=== PATIENT | female | born 1980 | race Caucasian/White ===

== ENCOUNTER 2020-01-28 13:22 | Outpatient (CLI) | payer OTHER, SELFPAY ==
--- NOTE | ~2020-01-28 | MMUS_ITS ---
EXAMINATION: MM diagnostic rony RT w yamileth, US breast RT limited HISTORY: Follow-up right breast calcifications TECHNIQUE: Additional 3-D tomosynthesis images of the right breast were performed and synthetic 2-D i mages were generated. CAD analysis was submitted and interpreted. High-resolution ultrasound of the r ight breast. COMPARISON: Comparison to multiple prior studies sequentially, with oldest reviewed study dated 12/2018. FINDINGS: Breast composed of scattered areas of fibroglandular density. Clustered calcifications uppe r inner quadrant of the right breast are stable, likely benign. Stable focal asymmetry lower inner qu adrant of the right breast. No new masses, calcifications or architectural distortion. Limited right breast ultrasound: At 2:00, 2 cm from the nipple, there is a hypoechoic mass with circumscribed margins, parallel orient ation and no internal vascularity or posterior features. This mass measures 1.5 x 1.5 x 0.8 cm compar ed with 1.9 x 1.0 x 0.5 cm on prior examination. IMPRESSION: 1. Focal right breast mass at 2:00, 2 cm from the nipple is not significantly changed allowing for di fferences of technique, likely benign. Benign-appearing right breast calcifications are unchanged. 2. Recommend 6 month follow-up diagnostic right mammogram and ultrasound recommended BI-RADS category 3, probably benign findings. Reviewed, dictated and finalized at location A. IMPRESSION: 1. Focal right breast mass at 2:00, 2 cm from the nipple is not significantly c hanged allowing for differences of technique, likely benign. Benign-appearing r ight breast calcifications are unchanged. 2. Recommend 6 month follow-up diagnostic right mammogram and ultrasound recomm ended BI-RADS category 3, probably benign findings.
== END 2020-01-28 13:23 | disposition home or self-care (01) ==
PROVIDERS: PCP Family Medicine; Visit Provider Physician Assistant Medical
DX: R92.8 Other abnormal and inconclusive findings on diagnostic imaging of breast (principal)
CPT/HCPCS: 76642; 77061; 77065; G0279

== ENCOUNTER 2020-03-12 15:42 | Emergency (ER) | payer OTHER, SELFPAY ==
--- NOTE | ~2020-03-12 | XR_ITS ---
EXAMINATION: XR finger 3rd LT min 2V DATE: 03/12/2020 17:24 INDICATION: Left hand third digit foreign body. TECHNIQUE: 3 views of left hand third digit were obtained. COMPARISON: Left hand third digit radiographs at 4:07 PM FINDINGS: Bone alignment is normal. No fracture. Joint spaces are normal. There is an 8 x 1 mm radiop aque foreign body in the soft tissues radial to third distal phalanx. IMPRESSION: 1. Persistent radiopaque foreign body in distal third digit. Reviewed, dictated and finalized at location A.
--- NOTE | ~2020-03-12 | XR_ITS ---
EXAMINATION: XR finger 3rd LT min 2V DATE: 03/12/2020 16:13 INDICATION: Left hand third digit foreign body. TECHNIQUE: 3 views of left hand third digit were obtained. COMPARISON: None. FINDINGS: Bone alignment is normal. No fracture. Joint spaces are normal. There is an 8 x 1 mm radiop aque foreign body in the soft tissues radial to third distal phalanx. IMPRESSION: 1. Radiopaque foreign body in distal third digit. Reviewed, dictated and finalized at location A.
[2020-03-12 16:04] VITALS: BP 131/92; PULSE 95; RESP 18; TEMP 37.1; O2SAT 98
--- NOTE | 2020-03-12 16:55 | ED.WOUNDLAC ---
HPI - Wound/Laceration General Chief Complaint: Wound/Laceration Stated Complaint: laceration Time Seen by Provider: 03/12/20 16:30 Source: patient Mode of arrival: ambulatory Limitations: no limitations History of Present Illness HPI narrative: Vane William is a 39 yo female with a PMH of,hypo thyroid and depression, who comes to express care with possible needle stuck in finger from sewing machine that happened POA Related Data Home Medications Medication Instructions Recorded Confirmed Otc Vitamins 03/12/20 Allergies Allergy/AdvReac Type Severity Reaction Status Date / Time No Known Allergies Allergy Unknown Unverified 07/28/17 13:44 Review of Systems Review of Systems: Narrative: CONSTITUTIONAL: Denies fever, chills, sweats. EYES: Denies visual changes, redness, discharge. ENT: Denies rhinorrhea, congestion, sore throat, otalgia. CARDIOVASCULAR: Denies chest pain, palpitations, edema. RESPIRATORY: Denies dyspnea, wheezing, cough GASTROINTESTINAL: Denies abdominal pain, nausea, vomiting, diarrhea. GENITOURINARY: Denies dysuria, hematuria, abnormal discharge SKIN: Denies rash or itching. Possible sewing needle in finger NEUROLOGIC: Denies numbness, or focal weakness. PSYCHIATRIC: Denies anxiety or depression. [facility] Family History Family History Father Hypertension Family history of diabetes mellitus in first degree relative Other Malignant neoplasm of prostate Social History Social History Smoking status: Current every day smoker Alcohol intake: current Comments At time of signature, I agree with nursing past medical, surgical, social and family history. There is no relevant family history pertinent to the presenting complaint. Blood pressure is elevated due to pain and visit in express care, recommend follow-up with PCP Exam Narrative: Exam Narrative: GENERAL: This is a well-nourished, well-developed patient, in mild distress. HEAD: normocephalic, atraumatic. EYES: PERRL. Sclera clear/white. Vision is grossly intact. EARS: External ears normal, auditory canals clear and without drainage, TMs normal without perforation. Hearing grossly intact. NOSE: External nose normal without nasal discharge, nares without redness, no rhinorrhea. THROAT: Mucous membranes moist, posterior pharynx NECK: Neck supple, non-tender CARDIOVASCULAR: Regular rate and rhythm without murmurs, gallops, or rubs. RESPIRATORY: Clear to auscultation. Breath sounds equal bilaterally. No wheezes, rales, or rhonchi. GASTROINTESTINAL: Abdomen soft, non-tender, SKIN: warm, intact with no suspicious lesions or rash, good texture and turgor. Radiopaque foreign object in third left finger and soft tissue along distal digit NEURO: awake, alert, and oriented to person, place and time. There were no obvious focal neurologic abnormalities. Steady gait EXTREMITIES: Normal range of motion. BACK: Nontender without deformity Course Vital Signs Vital signs: Vital Signs Temperature 98.7 F 03/12/20 16:04 Pulse Rate 95 03/12/20 16:04 Respiratory Rate 18 03/12/20 16:04 Blood Pressure 131/92 H 03/12/20 16:04 Pulse Oximetry 98 03/12/20 16:04 Temperature 98.7 F 03/12/20 16:04 Pulse Rate 95 03/12/20 16:04 Respiratory Rate 18 03/12/20 16:04 Blood Pressure 131/92 H 03/12/20 16:04 Pulse Oximetry 98 03/12/20 16:04 Procedures Foreign Body Removal Foreign Body #1: Foreign Body Removal Date: 03/12/20 Foreign Body Removal Time: 17:00 Site: left Description of foreign body: needle Technique: removal with forceps Confirmed by:: radiograph Complications: bleeding Foreign Body Removal Narrative: failed to retrieve needle from distal digit MDM - Wound/Laceration Differential Diagnosis Differential diagnosis: Likely laceration, abrasion and other
--- NOTE | 2020-03-12 18:02 | PC.NURSE ---
awaiting call back from dr. lew
--- NOTE | 2020-03-12 18:39 | PC.NURSE ---
at [id number] office called back and to f/u in morning.
== END 2020-03-12 18:36 | disposition home or self-care (01) ==
PROVIDERS: Emergency Provider Nurse Practitioner; PCP Family Medicine
DX: S61.243A Puncture wound with foreign body of left middle finger without damage to nail, initial encounter (principal); W27.3XXA Contact with needle (sewing), initial encounter; F17.200 Nicotine dependence, unspecified, uncomplicated; E03.9 Hypothyroidism, unspecified; F41.9 Anxiety disorder, unspecified; F32.9 Major depressive disorder, single episode, unspecified
CPT/HCPCS: 73140; 99213; G0463

== ENCOUNTER → 2020-04-25 10:48 | Outpatient (CLI) | payer OTHER, SELFPAY ==
--- NOTE | ~2020-04-25 | US_ITS ---
US thyroid INDICATION: Nontoxic goiter. TECHNIQUE: Real-time sonographic images of the thyroid gland were obtained. COMPARISON: No prior studies for comparison. FINDINGS: The right thyroid lobe measures 3.7 x 2.1 x 1.7 cm. The left thyroid lobe measures 3 x 1.2 x 1.2 cm. In the posterior mid aspect of the right thyroid lobe there is a solid-appearing hypoechoi c mass that is taller than wide, irregular margins and no definite internal calcifications measuring 1.6 x 1.5 x 1.3 cm, TR 5. IMPRESSION: 1. Suspicious right thyroid mass, TR5. Ultrasound-guided biopsy recommended. Reviewed, dictated and finalized at location A.
== END ==
PROVIDERS: PCP Family Medicine; Visit Provider Internal Medicine Endocrinology, Diabetes & Metabolism
DX: E04.9 Nontoxic goiter, unspecified (principal)
CPT/HCPCS: 76536

== ENCOUNTER 2020-05-19 13:20 | Outpatient (CLI) | payer OTHER, SELFPAY ==
--- NOTE | ~2020-05-19 | US_ITS ---
EXAMINATION: US FNA w image guidance DATE: 05/19/2020 14:09 INDICATION: Right thyroid nodule. TECHNIQUE: The procedure and its benefits, risks, and benefits were discussed with the patient. Risks specifical ly discussed included bleeding. The patient verbalized understanding of the risks and agreed to proce ed. The neck was prepped and draped in the usual sterile manner. 1% lidocaine was used for local ane sthesia. 5 passes were made with a 25G needle into the lesion. Appropriate needle location was docu mented with continuous sonographic guidance. There were no immediate complications. The patient unde rstood to call the ordering physician for results after a week and a half and verbalized that underst anding. FINDINGS: Grayscale ultrasound images demonstrate needles advanced into a 1.6 cm inferior right thyroid nodule for biopsy. IMPRESSION: 1. Ultrasound-guided fine needle aspiration of a right thyroid nodule. Reviewed, dictated and finalized at location A.
== END 2020-05-19 13:21 | disposition home or self-care (01) ==
PROVIDERS: PCP Family Medicine; Visit Provider Internal Medicine Endocrinology, Diabetes & Metabolism
DX: E04.1 Nontoxic single thyroid nodule (principal)
CPT/HCPCS: 10005; 88173; 88305

== ENCOUNTER 2020-06-02 08:37 | Outpatient (CLI) | payer OTHER, SELFPAY ==
--- NOTE | 2020-06-16 14:30 | SLEEP_ITS ---
HOME SLEEP TEST DATE OF STUDY: 06/02/2020 ORDERING PHYSICIAN: Giana Mueller MD. REASON FOR THIS STUDY: Hypersomnolence. HISTORY: The patient is a 39-year-old female, 5 feet 5 inches tall, weighing 240 pounds with a body mass index of 39.9. She has complaints of difficulty sleeping for years. She has had bouts of insomnia, where she is awake for hours in the middle of the night. She wakes up feeling tired and exhausted. Her notes that she snores. She does use Benadryl or Tylenol before sleep to help initiate sleep. She does not awaken from sleep feeling short of breath. She occasionally awakens at night with heartburn, belching, coughing, she snores and occasionally it is loud enough that others complain about it. She occasionally has trouble sleeping with a cold. She does not wake up gasping for breath at night. She occasionally has breathing problems at night observed by others. She frequently sweats excessively night. She occasionally notices her heart pounding or beating irregularly at night. She frequently falls asleep in the day, rarely involuntarily, never while driving. She does not have loss of muscle tone with strong emotion. She rarely has daytime difficulties due to excessive sleepiness. She works as an administrative services specialist. She does not feel paralyzed on waking or falling asleep. She never has vivid dreamlike scenes upon awakening or falling asleep. She is never afraid to go to sleep and does not have nightmares. She rarely remembers her dreams. She occasionally has racing thoughts, feelings of sadness, depression, anxiety, occasional muscular tension and occasionally notices parts of her body jerking. She does not kick at night or have crawly achy feelings in her legs. She does not have leg pain at night. She frequently has morning jaw pain. She rarely grinds her teeth during sleep, rarely is bothered by pain during the day, and rarely is awakened by pain at night. She frequently wakes up feeling stiff in the morning with sore achy muscles. She occasionally wakes up with pain in the neck and spine. She has headaches and fatigue. Normal bedtime is 10:30 to 11:00 p.m., falling asleep within 15 minutes, waking 3-5 times at night for a few minutes, will adjust position and try to go back to sleep. She wakes in the morning at 6:00-6:30 a.m. She estimates 7-8 hours of sleep per night. Weekend schedule is very similar. She does take naps in the afternoon or evening. A short nap is not refreshing. She is usually drowsy in the morning for 2 hours or longer. MEDICAL COMORBIDITIES: 1. Depression. 2. Hypothyroidism. 3. Blood pressure was elevated in the office, but there is no listed diagnosis of hypertension. 4. Fatigue. 5. Hirsutism. MEDICATIONS: 1. Synthroid 150 mcg daily. 2. Spironolactone 50 mcg twice a day. 3. Metformin 500 mg b.i.d. 4. Multivitamin 1 daily. HABITS: Never smoked tobacco. Caffeine, 1 per day. Alcohol less than 1 per day, average 2 per week. No recreational drugs. DESCRIPTION OF THE STUDY: On the [place] Sleepiness Scale, her score is elevated at 16. This was conducted an unattended type 3 portable home sleep test using 4-channel monitoring with respiratory effort channel, snoring channel, oxygen saturation channel, and heart rate channel. This study was scored using CMS guidelines. Duration was 8 hours 0 minutes. The apnea-hypopnea index is 14.1. This is above normal. Oxygen desaturation index is 13.4. There were 6 apneas. They were all obstructive. She had 107 hypopneas and 1560 snoring events. She desaturated 108 times and spent 28 minutes, 6% of the study below 88% saturation. Heart rate ranged from 58 to 103. IMPRESSION: 1. This home sleep test ApneaLink shows at least
== END 2020-06-02 08:38 | disposition home or self-care (01) ==
LOC: ANHCSM 08:41
PROVIDERS: PCP Family Medicine; Visit Provider Internal Medicine Endocrinology, Diabetes & Metabolism
DX: G47.33 Obstructive sleep apnea (adult) (pediatric) (principal)
CPT/HCPCS: 95806

== ENCOUNTER 2020-09-04 02:11 | Outpatient (CLI) | payer OTHER, SELFPAY ==
[2020-09-04 17:23] LABS: SARS-CoV-2 RNA PCR Negative
== END 2020-09-04 02:12 | disposition home or self-care (01) ==
LOC: ANHCOVIDDT 02:11
PROVIDERS: PCP Family Medicine; Visit Provider Internal Medicine Critical Care Medicine
DX: Z01.812 Encounter for preprocedural laboratory examination (principal); Z20.822 Contact with and (suspected) exposure to COVID-19
CPT/HCPCS: C9803; U0003

== ENCOUNTER 2020-09-07 08:21 | Outpatient (CLI) | payer OTHER, SELFPAY ==
--- NOTE | 2020-10-15 11:29 | WPDSLEEPSTUD ---
Sleep Study Date of Study: 09/07/20 Ordering Provider: Tito Dutta MD Interpreting Physician: Mariaelena Astorga MD Sleep Study Type: CPAP Titration Height: 1.65 m Weight: 108.862 kg Body Mass Index: 39.9 Neck Circumference: 43.18 cm Corea: 16 Reason for Sleep Study Home Sleep Test 06/02/2020 with ApneaLink device showing an AHI of 14.1, desaturation to 76% with frequent snoring. Presents for a CPAP titraiton. Sleep History Vane William is a 40 year old female with a history of hypersomnolence, difficulty sleeping for years with episodes of insomnia, often waking for hours during the middle of the night. She has non refreshing sleep. She has been told she snores loudly. She has used Benadryl and Tylenol to help initiate sleep. She does not wake up at night feeling short of breath. She occasionally wakes up with heartburn belching or coughing. She does not wake up gasping for breath at night. She is frequently sweats excessively at night. She occasionally notices her heart pounding or beating irregularly at night. She frequently falls asleep during the day, rarely involuntarily but does not fall asleep while driving. She does not have symptoms to suggest narcolepsy such as loss of muscle tone was strong emotion, sleep paralysis or vivid dreamlike scenes upon awakening or falling asleep. She does not have nightmares. Rarely remembers her dreams. Does not kick at night or have uncomfortable feelings in her legs at night. No leg pain at night. She frequently has morning jaw pain and rarely grinds her teeth during sleep. She often wakes up with stiffness and sore muscles. She has headaches and fatigue. Normal bedtime 10 30-11 p.m. falling asleep in 15 minutes, waking 3-5 times at night, adjust her body position returns to sleep. Wakes between 6 and 6:30 a.m.. She takes naps but a short nap is not refreshing. She is drowsy in the morning for 2 hours or longer. FORMERLY [facility], [facility] Past Medical History Medical History (Updated 10/15/20 @ 13:29 by Mariaelena Astorga MD) Calcification of right breast on mammography Mass of right breast Obstructive sleep apnea Family History Family History Father Hypertension Family history of diabetes mellitus in first degree relative Other Malignant neoplasm of prostate Social History Social History Smoking status: Current every day smoker Alcohol intake: current Medications Home Medications Medication Instructions Recorded Confirmed Type sertraline 100 mg tablet 100 mg PO DAILY #90 tablet 01/23/20 Rx Otc Vitamins 03/12/20 History levothyroxine 150 mcg tablet 150 mcg PO DAILY #30 tablet 03/26/20 Rx triamcinolone acetonide 0.5 % 1 applic TOPICAL TID #30 gm 04/15/20 04/15/20 Rx topical cream Sleep Procedure This test was performed using the [employer] multiple channel system including EOG, EEG, submental EMG, EKG, nasal and oral airflow using thermistors and nasal pressure sensors, chest and abdominal belts for body position data, and pulse oximetry. Video monitoring was also performed. The study was scored using CMS guidelines. The patient was started on CPAP at 5 cm water presure with a small Airfit P10 nasal pillow and heated humidifier. She used pressures increasing by 1 cm to the maximum of 11 cm water pressure. At 11 cm the patient spent 5 hours 4 minutes in bed, 1 hour and 40 minutes in REM, 2 hours 34 minutes in non-REM, had 3 hypopneas with an AHI of 0.7, minimum saturation 89% and 83% sleep efficiency. This is the optimal pressure. Sleep Architecture The recording time is 440.8 minutes. The sleep time is 362.9 minutes. The sleep efficiency is 82.3%. Sleep latency is 20.5 minutes. REM latency is 84.5 minutes. There were 23 awakenings and the patient spent 13.7% of the study awake after sleep onset, 57.5 minutes. Sleep architecture showed 5% stage 1 sleep, 5
[2020-10-15 13:37] VITALS: BMI 39.9
== END 2020-09-07 08:22 | disposition home or self-care (01) ==
LOC: ANHCSM 08:23
PROVIDERS: PCP Family Medicine; Visit Provider Family Medicine
DX: G47.33 Obstructive sleep apnea (adult) (pediatric) (principal)
CPT/HCPCS: 95811

== ENCOUNTER 2020-09-10 13:53 | Outpatient (CLI) | payer OTHER, SELFPAY ==
--- NOTE | ~2020-09-10 | MMUS_ITS ---
EXAMINATION: MM diagnostic rony RT w yamileth, US breast RT limited HISTORY: Follow-up right breast mass TECHNIQUE: Additional 3-D tomosynthesis images of the right breast were performed and synthetic 2-D i mages were generated. CAD analysis was submitted and interpreted. High resolution right breast ultras ound was performed. COMPARISON: Comparison to multiple prior studies sequentially, with oldest reviewed study dated 12/2018. BREAST PARENCHYMAL COMPOSITION: Breast composed of scattered areas of fibroglandular density. FINDINGS: MAMMOGRAPHIC FINDINGS: Focal mass in the lower inner quadrant aspect of the right breast is unchanged. There are benign righ t breast calcifications. There is no architectural distortion. ULTRASOUND: Stable oval hypoechoic mass with echogenic hilum measuring 1.4 x 1 x 0.4 cm. No significant posterior features or internal vascularity. Stable size compared with prior studies. IMPRESSION: 1. Stable right breast mass, likely benign. 2. Recommend 6 month follow-up diagnostic bilateral mammogram and right breast ultrasound BI-RADS category 3, probably benign findings. Reviewed, dictated and finalized at location A. [facility] IMPRESSION: 1. Stable right breast mass, likely benign. 2. Recommend 6 month follow-up diagnostic bilateral mammogram and right breast ultrasound BI-RADS category 3, probably benign findings.
== END 2020-09-10 13:54 | disposition home or self-care (01) ==
PROVIDERS: PCP Family Medicine; Visit Provider Physician Assistant Medical
DX: N63.10 Unspecified lump in the right breast, unspecified quadrant (principal); R92.1 Mammographic calcification found on diagnostic imaging of breast; R92.8 Other abnormal and inconclusive findings on diagnostic imaging of breast
CPT/HCPCS: 76642; 77061; 77065; G0279

== ENCOUNTER 2021-10-11 15:03 | Outpatient (CLI) | payer OTHER, SELFPAY ==
--- NOTE | ~2021-10-11 | MM_ITS ---
EXAMINATION: MM screening [facility] BI w yamileth HISTORY: Screening TECHNIQUE: Craniocaudal and mediolateral oblique 3-D tomosynthesis images were obtained and synthetic 2-D images were generated. CAD analysis was submitted and interpreted. COMPARISON: Comparison to multiple prior studies sequentially, with oldest reviewed study dated 12/2018. BREAST PARENCHYMAL COMPOSITION: There are scattered areas of fibroglandular density. FINDINGS: There is no evidence of suspicious mass, calcification, or architectural distortion to sugg est malignancy in either breast. There has been no suspicious interval change. IMPRESSION: 1. No mammographic evidence of malignancy. 2. Recommend routine screening mammography in one year. BI-RADS Category 1: Negative Reviewed, dictated and finalized at location A. ING THERAPY DIRECTOR
== END 2021-10-11 15:04 | disposition home or self-care (01) ==
LOC: ANHIMG 15:05
PROVIDERS: PCP Family Medicine; Visit Provider Obstetrics & Gynecology
DX: Z12.31 Encounter for screening mammogram for malignant neoplasm of breast (principal)
CPT/HCPCS: 77063; 77067

== ENCOUNTER 2022-11-29 09:05 | Outpatient (CLI) | payer OTHER, SELFPAY ==
--- NOTE | ~2022-11-29 | MM_ITS ---
EXAMINATION: MM screening rony BI w yamileth HISTORY: Screening mammogram TECHNIQUE: Craniocaudal and mediolateral oblique 3-D tomosynthesis images were obtained and synthetic 2-D images were generated. CAD analysis was submitted and interpreted. COMPARISON: October 11, 2021 bilateral screening mammogram September 10, 2020, January 28, 2020, May 10, 2019 Diagnostic right mammogram and limited right breas t ultrasound May 02, 2019 bilateral screening mammogram BREAST PARENCHYMAL COMPOSITION: There are scattered areas of fibroglandular density. FINDINGS: There is asymmetry at mid depth in the inner right breast on CC projection. Diagnostic righ t mammogram is recommended, with ultrasound if required. Otherwise no suspicious mass, architectural distortion, malignant calcification, skin thickening or r etraction of either breast is evident. IMPRESSION: 1. Right mammographic asymmetry 2. Diagnostic right mammogram is recommended, with ultrasound if required BI-RADS Category 0: Incomplete: Needs additional imaging evaluation. Reviewed, dictated and finalized at location A.
== END 2022-11-29 09:06 | disposition home or self-care (01) ==
PROVIDERS: PCP Family Medicine; Visit Provider Obstetrics & Gynecology
DX: Z12.31 Encounter for screening mammogram for malignant neoplasm of breast (principal); R92.8 Other abnormal and inconclusive findings on diagnostic imaging of breast
CPT/HCPCS: 77063; 77067

== ENCOUNTER 2022-12-27 13:54 | Outpatient (CLI) | payer OTHER, SELFPAY ==
--- NOTE | ~2022-12-27 | MM_ITS ---
EXAMINATION: MM diagnostic rony RT w yamileth HISTORY: Right breast focal asymmetry on screening mammogram TECHNIQUE: Additional 3-D tomosynthesis images of the right breast were performed and synthetic 2-D i mages were generated. CAD analysis was submitted and interpreted. COMPARISON: 11/29/2022, 10/11/2021, 09/10/2020, 01/28/2020, 05/02/2019 FINDINGS: Spot compression views demonstrate a stable focal asymmetry of the right breast in the area questioned on screening mammogram. There has been no suspicious interval change. IMPRESSION: 1. No mammographic evidence of malignancy. 2. Recommend routine screening mammography in one year. BI-RADS Category 2: Benign finding(s). Reviewed, dictated and finalized at location A.
== END 2022-12-27 13:55 | disposition home or self-care (01) ==
PROVIDERS: PCP Family Medicine; Visit Provider Obstetrics & Gynecology
DX: R92.8 Other abnormal and inconclusive findings on diagnostic imaging of breast (principal)
CPT/HCPCS: 77061; 77065; G0279

== ENCOUNTER 2024-02-28 08:50 | Outpatient (CLI) | payer OTHER, SELFPAY ==
--- NOTE | ~2024-02-28 | MM_ITS ---
EXAMINATION: MM screening rony BI w yamileth HISTORY: Screening mammogram TECHNIQUE: Craniocaudal and mediolateral oblique 3-D tomosynthesis images were obtained and synthetic 2-D images were generated. CAD analysis was submitted and interpreted. COMPARISON: 11/29/2022, 10/11/2021, 09/10/2020 BREAST PARENCHYMAL COMPOSITION:Not Dense. There are scattered areas of fibroglandular density. FINDINGS: No suspicious mass, calcification, or architectural distortion are identified in either sheryl ast to suggest malignancy. There has been no suspicious interval change. IMPRESSION: No mammographic evidence of malignancy. Recommend routine screening mammography in one year. BI-RADS Category 1: Negative Reviewed, dictated and finalized at location .
== END 2024-02-28 08:51 | disposition home or self-care (01) ==
LOC: ANHIMG 08:53
PROVIDERS: PCP Family Medicine; Visit Provider Obstetrics & Gynecology
DX: Z12.31 Encounter for screening mammogram for malignant neoplasm of breast (principal)
CPT/HCPCS: 77063; 77067

== ENCOUNTER 2024-06-01 07:47 | Outpatient (CLI) | payer OTHER, SELFPAY ==
--- NOTE | ~2024-06-01 | US_ITS ---
EXAMINATION: US abdomen complete DATE: 06/01/2024 08:20 INDICATION: Abnormal findings of blood chemistry TECHNIQUE: Multiple grayscale and Doppler ultrasound images of the abdomen were obtained. COMPARISON: None FINDINGS: Visualized abdominal aorta is normal in caliber measuring up to 2 cm in maximal diameter. The pancrea tic head and body are normal in appearance. The pancreatic tail is not visualized. The visualized pr oximal inferior vena cava is normal. Liver has normal contour, with a smooth surface. There is increa sed parenchymal echogenicity and coarsened echotexture consistent with diffuse hepatic steatosis. No liver lesion identified. No intrahepatic biliary duct dilation suspected. Portal venous flow was see n in the hepatopetal, normal direction and has normal Doppler waveform. Gallbladder is not visualized and reportedly surgically absent. The common bile duct measures up to 9-10 mm in maximal diameter wh ich is within normal limits post cholecystectomy. There is normal renal contour and echogenicity bila terally. The right kidney measures 11.9 x 5.9 x 6.0 cm and the left 12.4 x 6.4 x 5.8 cm. There are n o focal renal lesions identified. There is no hydronephrosis. Mild splenomegaly measuring 14.6 cm cr aniocaudal length. IMPRESSION: 1. Diffuse hepatic steatosis. 2. Mild dilation of the common bile duct to 9-10 which is within normal limits post cholecystectomy a nd without associated intrahepatic ductal or ductal dilation. 3. Mild splenomegaly. Reviewed, dictated and finalized at location A. IMPRESSION: 1. Diffuse hepatic steatosis. 2. Mild dilation of the common bile duct to 9-10 which is within normal limits post cholecystectomy and without associated intrahepatic ductal or ductal dilat ion. 3. Mild splenomegaly.
== END 2024-06-01 07:48 | disposition home or self-care (01) ==
PROVIDERS: PCP Family Medicine; Visit Provider Physician Assistant Medical
DX: K76.0 Fatty (change of) liver, not elsewhere classified (principal); K83.8 Other specified diseases of biliary tract; R16.1 Splenomegaly, not elsewhere classified; R79.89 Other specified abnormal findings of blood chemistry
CPT/HCPCS: 76700

== ENCOUNTER 2024-12-04 10:30 | Outpatient (RCR) | payer OTHER, SELFPAY ==
[2024-11-06 12:14] VITALS: BMI 42.9
== END 2025-01-27 09:23 | disposition home or self-care (01) ==
LOC: ANHDMC 10:30
PROVIDERS: Visit Provider Internal Medicine
DX: E11.9 Type 2 diabetes mellitus without complications (principal); Z71.89 Other specified counseling; Z71.3 Dietary counseling and surveillance
CPT/HCPCS: 97802; G0108

== ENCOUNTER 2024-12-04 11:43 | Outpatient (CLI) | payer OTHER, SELFPAY ==
--- NOTE | ~2024-12-04 | US_ITS ---
EXAMINATION: US thyroid DATE: 12/04/2024 12:00 INDICATION: Hypothyroidism TECHNIQUE: Multiple ultrasound images of the thyroid were obtained. COMPARISON: 04/25/2020 FINDINGS: The right thyroid lobe measures 4.4 x 2.4 x 1.8 cm. The left thyroid lobe measures 2.7 x 1.7 x 1.3 c m. The thyroid isthmus measures 6 mm in thickness. 9 mm solid hypoechoic nodule which is wider than t all with smooth margins without echogenic foci at the thyroid isthmus. (TI-RADS 4, moderately suspici ous , FNA if >=1.5 cm, annual followup is >=1 cm). No significant interval change in a 1.7 cm solid p rior than wide nodule with ill-defined margins in the deep inferior right thyroid lobe. (TI-RADS 5, h ighly suspicious , FNA if >=1.0 cm, annual followup is >0.5 cm). Intervening biopsy of this nodule on 05/19/2020 demonstrated pathology consistent with benign follicular nodule. IMPRESSION: 1. No significant interval change since 2019 in a 1.7 cm TI RADS 5 right thyroid nodule with interven ing benign biopsy. A second 9 mm Ti rads 4 nodule at the isthmus remains below size criteria for eith er biopsy or follow-up. Reviewed, dictated and finalized at location B. IMPRESSION: 1. No significant interval change since 2019 in a 1.7 cm TI RADS 5 right thyroi d nodule with intervening benign biopsy. A second 9 mm Ti rads 4 nodule at the isthmus remains below size criteria for either biopsy or follow-up.
== END 2024-12-04 11:44 | disposition home or self-care (01) ==
LOC: MICIMG 11:43
PROVIDERS: PCP Internal Medicine; Visit Provider Internal Medicine
DX: E04.1 Nontoxic single thyroid nodule (principal); E03.9 Hypothyroidism, unspecified
CPT/HCPCS: 76536

== ENCOUNTER 2025-02-04 09:00 | Outpatient (RCR) | payer OTHER, SELFPAY | END 2025-05-05 12:06 | disposition home or self-care (01) | LOC: ANHDMC 09:00 | PROVIDERS: PCP Family Medicine; Visit Provider Internal Medicine | DX: E11.9 Type 2 diabetes mellitus without complications (principal); Z71.89 Other specified counseling | CPT/HCPCS: G0108 ==

== ENCOUNTER 2025-04-16 08:15 | Outpatient (CLI) | payer OTHER, SELFPAY ==
--- NOTE | ~2025-04-16 | MM_ITS ---
EXAMINATION: MM screening [facility] BI w yamileth HISTORY: Screening mammogram TECHNIQUE: Craniocaudal and mediolateral oblique 3-D tomosynthesis images were obtained and synthetic 2-D images were generated. CAD analysis was submitted and interpreted. COMPARISON: 02/28/2024, 12/27/2022, 11/29/2022, 10/11/2021 BREAST PARENCHYMAL COMPOSITION:Not Dense. There are scattered areas of fibroglandular density. FINDINGS: No suspicious mass, calcification, or architectural distortion are identified in either breast to suggest malignancy. There has been no suspicious interval change. IMPRESSION: No mammographic evidence of malignancy. Recommend routine screening mammography in one year. BI-RADS Category 1: Negative Reviewed, dictated and finalized at location .
--- OUTSIDE RECORDS SUMMARY | 2025-04-16 08:23 | XMS_ITS | Clinical Summary ---
Author Organization [facility] Address [address] [place] [address] Care Team Providers Care Bale Tie Machine Operator Name Role Phone Lolis Fair MD Unavailable [phone] Source Comments [facility] [employer]non-owned Affiliates and Associated Physician Practices is amultiple site organization consisting of ambulatory clinics and hospital sitesin [place], [place], [place] and [place]. This disclosure is being madepursuant to the Care Everywhere program and may not contain all information available regarding this patient. Last updated 18.[facility] [employer] 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 Gender Identity Not on file Sexual Orientation Not on file Plan of Treatment Health Maintenance Due Date Last Done Comments COLOGUARD (AGES 45-75) - COL ON CA SCREENING 1978 COLON MONITORING 1978 COLONOSCOPY - COLON CA SCREENING 1978 CT COLONOGRAPHY - COLON CA SCREENING 1978 Colorectal Cancer Screening 1978 FIT - COLON CA SCREENING 1978 FLEX SIG - COLON CA SCREENING 1978 LIPID TESTING 1978 MAMMOGRAM 1978 HIV SCREENING 1993 HEPATITIS C SCREENING 07/10/1996 DTAP/TDAP/TD VACCINES (1 - Tdap) 1997 HEPATITIS B VACCINE (1 of 3 - 19+ 3-dose series) 1997 PAP SMEAR 1999 COVID-19 VACCINE (2023-2 5 season) 2024 DEPRESSION SCREENING 08/28/2024 INFLUENZA VACCINE (#1) 2025 ZOSTER VACCINE (1 of 2) 2028 HIB VACCINE Aged Out No longer eligi ble based on patient's age to complete this topic HPV VACCINE Aged Out No longer eligi ble based on patient's age to complete this topic MENINGOCOCCAL (Group B) VACC INE SHARED DECISION-MAKING Aged Out No longer eligibl e based on patient's age to complete this topic MENINGOCOCCAL GROUPS A/C/Y/W VACCINE Aged Out No longer eligible b ased on patient's age to complete this topic PNEUMOCOCCAL VACCINE Aged Out No long er eligible based on patient's age to complete this topic Insurance Care Teams Bale Tie Machine Operator Relationship Specialty Start Date End Date Lolis Fair MD [address] [place] [phone] Family Medicine 05/27/14
--- OUTSIDE RECORDS SUMMARY | 2025-04-16 08:23 | XMS_ITS | Clinical Summary ---
Author Organization [facility] Address [address] [place] [address] Care Team Providers Care Market Intelligence Consultant Name Role Phone Tito Dutta MD Primary Care Provider [phone] Allergies No known active allergies Medications vitamin #49-iron-FA (MINI ) 6.75 mg iron- 200 mcg tablet PT STATES TAKES 1 DAILY Active ergocalciferol (VITAMIN D2) 50,000 unit capsule TAKE 1 CAPSULE WEEKLY. Active acetaminophen-co deine (TYLENOL with CODEINE #3) 300-30 mg per tablet Active atorvastatin (LIPITOR) 10 mg tablet 03/25/20 25 Active desvenlafaxine ER (Pristiq) 50 mg 24 hr tablet Take 1 tablet (50 mg total) by mouth daily Active propranoloL (INDERAL) 10 mg tablet TK 1 T PO TID PRN Active spironolactone (ALDACTONE) 50 mg tablet Take 3 tablets (150 mg total) by mouth daily Active triamcinolone (KENALOG) 0.5 % cream PIERCE EXT AA TID Active Synthroid 150 mcg tablet Take 1 tablet (150 mcg total) by mouth daily 03/06/20 25 Active sertraline (ZOLOFT) 50 mg tablet daily. 025 Discontinued levothyroxine (SYNTHROID) 137 mcg tablet daily. 025 Discontinued sertraline (ZOLOFT) 100 mg tablet TK 1 T PO QD 1 08/10/20 18 025 Discontinued amoxicillin-clav ulanate (AUGMENTIN) 875-125 mg per tabletIndication s:Acute non-recurrent pansinusitis Take 1 tablet by mouth 2 (two) times a day for 7 days 14 tablet 03/28/20 25 025 Active Problems Problem Noted Date Diagnosed Date Missed 03/28/2025 Recurrent loss 03/28/2025 Morbid obesity 03/28/2025 Obstructive sleep apnea 03/28/2025 Suppression of menstruation 03/28/2025 Threatened in second trimester 03/28/20 25 Acute pharyngitis 03/28/2025 Anxiety 03/28/2025 Blood glucose abnormal 03/28/2025 Disorder of adrenal gland 03/28/2025 Hypothyroidism 03/28/2025 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 08/2024 Obesity 11/29/2022 Weight gain 11/29/2022 Polycystic ovary syndrome 04/26/2022 Prediabetes 04/26/2022 Loss of hair 04/26/2022 Fatigue 04/20/2020 Abnormal LFTs 09/27/2018 Hepatic steatosis 09/27/2018 Obesity with body mass index 30 or greater 04/20 Abnormal liver function tests 04/20/2017 Nonalcoholic fatty liver disease 04/20/2017 Recurrent loss without current pregnan cy 02/09/2015 Elderly multigravida with an tepartum condition or complication 05/27/2014 Encounters Date Type Department Care Team Description 03/28/2025 10:30 AM CDT Office Visit [facility] Count Includes [facility] Care at [address] [phone] Nadine Esparza NP Acute non-recurrent pansinusitis (Primary Dx) 03/10/2025 10:00 AM CDT Office Visit [facility] Sleep Medicine at [address] [place] [phone] Miryam Mart MD Obstructive sleep apnea (Primary Dx); Hypersomnia; Obesity, unspecified class, unspecified obesity type, unspecified whether serious comorbidity present 03/10/2025 Telephone [facility] [address] [place] [address] [address] [place] [phone] Acacia Donato MA 03/10/2025 Orders Only [facility] [address] [place] [phone] Corey Guerrero MD from Last 3 Months Surgical History Surgery Date Site/Laterality Comments [place] DELIVERY ONLY Section - (Added by Conv) [place] DILATION & CURETTAGE DX&/ THER NONOBSTETRIC Dilation And Curettage - (Added by Conv) Medical History Medical History Date Comments Personal history of other en docrine, nutritional and metabolic disease History of thyroid d isease - (Added by Conv) Family History Medical History Relation Name Comments Cancer Father Family history of malignant neoplasm - (Added by Conv) Diabetes Father Family history of diabetes mellitus - (Added by ) Hypertension Father Family history of hypertension - (Added by Conv) Relation Name Status Comments Father Social History Tobacco Use Types Packs/Day Years Used Date Smoking Tobacco: Former Comments Unknown Sex and Gender Information Value Date Recorded Sex Assigned at Not on file Legal Sex Female 2:24 AM [employer] Gender Identity Not on file Sexual Orientation Not on file Obstetrics History Last Filed Vital Signs Vital Sign Reading Time Taken Comments Blood Pressure 128/82 03/28/2025 10:29 AM CDT Pulse 77 03/28/2025 10:29 AM CDT Temperature 36.2 C (97.1 F) 03/28/2025 10:29 AM CDT Respiratory Rate 16 03/28/2025 10:29 AM CDT Oxygen Saturation 99% 03/28/2025 10:29 AM CDT Inhaled Oxygen Concentration - - Weight 100.2 kg (221 lb) 03/28/2025 10:29 AM CDT Height 162.6 cm (5' 4) 03/28/2025 10:29 AM CDT Body Mass Index 37.93 03/28/2025 10:29 AM CDT Plan of Treatment Health Maintenance Due Date Last Done Comments Breast Cancer Screening-Mammogram 1978 Cervical Cancer Screening 1978 Colon Cancer Screening-Colonoscopy 1978 Depression Screening 1978 Hepatitis C Screening 1978 Hepatitis B Screening 1996 Regular Well Visit/Exam 18-64 1996 Pneumococcal vaccine <65 (1 of 2 - PCV) 1997 Influenza Vaccine (#1) 2025 06/03/2017 DTaP/Tdap/Td Vaccine (2 - Td or Tdap) 06/03/2027 06/03/2017 HPV Vaccines Aged Out No longer eligi ble based on patient's age to complete this topic Procedures Procedure Name Priority Date/Time Associated Diagnosis Comments SLEEP LAB/STUDY - RESULT Routine 03/10/2025 1:30 PM CDT from Last 3 Months Results * SLEEP LAB/STUDY - RESULT (03/10/2025 1:30 PM CDT) us Historical Provider MD Final Res ult from Last [address] [facility] Care Teams Market Intelligence Consultant Relationship Specialty Start Date End Date Tito Dutta MD PCP - General 11/23/17
--- OUTSIDE RECORDS SUMMARY | 2025-04-16 08:23 | XMS_ITS | Patient Health Record ---
Author Organization [employer] [facility] Address [address] [place] [address] Care Team Providers Care Waterproof Coating Machine Tender Name Role Phone Giana Mueller Unavailable [phone] Allergies No Known Allergies Results Component Value Reference Range Flag Notes DHEA SULFATE (402) Reviewed date:12/03/2024 08:26:47 PM Interpretation: Performing Lab:[facility]que OLSEN-[id number] [id number] Lalo Sahu MD Notes/Report: DHEA SULFATE 90 15-205 mcg/dL N CORTISOL, TOTAL (367) Reviewed date:12/03/2024 08:26:47 PM Interpretation: Performing Lab:Jacque OLSEN-[id number] [id number] Lalo Sahu MD Notes/Report: CORTISOL, TOTAL 1.3 L Reference Range: For 8 a.m.(7-9 a.m.) Specimen: 4.0-22.0 Reference Range: For 4 p.m.(3-5 p.m.) Specimen: 3.0-17.0 * Please interpret above results accordingly * ACTH, PLASMA (211) Reviewed date:12/08/2024 06:02:37 PM Interpretation: Performing Lab:Jacque THOMSON/Taylor Bello [id number] Toya Lima, [id number] Mateo Rondon M.D.,PhD Notes/Report: ACTH, PLASMA <5 6-50 pg/mL L Reference range applies only to specimens collected between 7am-10am. DEXAMETHASONE (99442) Reviewed date:12/08/2024 06:02:37 PM Interpretation: Performing Lab:Jacque LEMUS/Taylor [facility],[address] [address] [facility] Layla Vera MD,PhD,SARAH Notes/Report: DEXAMETHASONE 310 Reference Ranges for Dexamethasone: Baseline: Less than 20 ng/dL 1 mg dexamethasone overnight: 180-550 ng/dL (8:00-10:00 AM) This test was developed and its analytical performance characteristics have been determined by [facility]. It has not been cleared or approved by the FDA. This assay has been validated pursuant to the CLIA regulations and is used for clinical purposes. Reason For Referral Reason sleep apnea, needs a ssistance with CPAP management and need for new study Diagnosis 1 Obstructive sleep ap cammie (G47.33) Referral Organization [facility] Dr. Mueller Referring Provider First Name Giana Referring Provider Last Name Ervin Referring Provider Speciality Endocrinol ogpeyman Referred Provider Specialty Sleep Medici ne Referral Priority Routine Medications Medication SIG (Take, Route, Frequency, Duration) Notes Start Date End Date Status Synthroid 150 MCG Tablet TAKE 1 TABLET B Y MOUTH DAILY Oral; Duration: 90 Days Active dexAMETHasone 1 MG Tablet 1 tablet Orall y at 10 pm night before 8 am cortisol; Duration: 1 days 11/07/2024 Activ e Social History Section Notes: ALCOHOL: ONCE A WEEK Problems Problem Type SNOMED Code ICD Code Onset Dates Problem Status W/U Status Risk Notes Problem Disorder of adrenal gland (45632939) Disorder of adrenal gland, unspecified (E27.9) Active confirmed Problem Morbid obesity (disorder) (702446600) Morbid (severe) obesity due to excess calories (E66.01) Active confirmed Problem Body mass index 40+ - severely obese (574397817) Body mass index [BMI] 40.0-44.9, adult (Z68.41) Active confirmed Problem Polycystic ovary syndrome (disorder) (750971549) PCOS (polycystic ovarian syndrome) (E28.2) Active confirmed Problem Obstructive sleep apnea (00786135) Obstructive sleep apnea (G47.33) Active confirmed Problem 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 Mueller [address] [place] [phone] 01/07/2025 Giana Mueller [address] [place], [place] [phone] 01/07/2025 Giana Mueller [address] [place] [address] 01/07/2025 Giana Mueller [address] [place] [phone] 01/07/2025 Giana Mueller [address] [place] [phone] 01/07/2025 Giana Mueller [address] [place] [phone] 01/07/2025 Giana Mueller [address] [place] [phone] 02/12/2025 Giana Mueller Assessments Encounter Date Diagnosis (ICD Code) Assessment Notes Treatment Notes Treatment Clinical Notes Section Notes 11/07/2024 Morbid (severe) obesity due to excess calories (ICD-10 - E66.01) 11/07/2024 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 (ICD-10 - E06.3) 12/20/2024 Morbid (severe) obesity due to excess calories (ICD-10 - E66.01) 12/20/2024 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 (ICD-10 - E06.3) 12/20/2024 PCOS (polycystic ovarian syndrome) (ICD-10 - E28.2) 11/07/2024 Body mass index [BMI] 40.0-44.9, adult (ICD-10 - Z68.41) 12/20/2024 Hypercortisolism (ICD-10 - E24.9) 11/07/2024 Obesity, class 3 (ICD-10 - E66.813) 11/07/2024 PCOS (polycystic ovarian syndrome) (ICD-10 - E28.2) 12/20/2024 Dietary counseling and surveillance (ICD-10 - Z71.3) Spent 15 minutes preventative counseling patient on dietary recommendations and changes in setting of hyperglycemia- need to restrict refined sugars and processed foods and incorporate up to 150 minutes of moderate level activity weekly. 12/20/2024 Disorder of adrenal gland, unspecified (ICD-10 - E27.9) 11/07/2024 Dietary counseling and surveillance (ICD-10 - Z71.3) Spent 15 minutes preventative counseling patient on dietary recommendations and changes in setting of hyperglycemia- need to restrict refined sugars and processed foods and incorporate up to 150 minutes of moderate level activity weekly. 12/20/2024 Obstructive sleep apnea (ICD-10 - G47.33) 11/07/2024 Other Assessment and Plan: 1. Type 2 Diabetes Mellitus- Initiate Ozempic 0.25 mg subcutaneously once weekly for 4 weeks, then increase to 0.5 mg if tolerated- Provide DexZubie G7 continuous glucose monitor samples for patient to start using- Check cortisol levels with ACTH test and repeat dexamethasone suppression test- Consider imaging studies (adrenal or pituitary) based on ACTH results- Recommend vitamin supplement containing inositol, berberine, chromium, iodine, methylated B12, folic acid, and vitamin D- Follow up on Ozempic tolerance and efficacy 2. Hypothyroidism- Continue current dose of Synthroid 150 mcg daily- Monitor thyroid function tests at next follow-up 3. Vitamin D Deficiency- Increase vitamin D supplementation to 4,000-5,000 IU daily- Recheck vitamin D levels at next follow-up 4. Obstructive Sleep Apnea- Refer to sleep medicine specialist for CPAP titration and management- Consider updating CPAP equipment if recommended by sleep specialist 5. Possible Celiac Disease- Order IgA and TTG IgA celiac panel as recommended by convex grinder operator- Follow up on results and discuss implications with patient Spent 45 minutes preparing to see the patient (ex review of tests/chart), obtaining and / or reviewing separately obtained history, performing a medically appropriate examination and/or evaluation, counseling and educating the patient/family/care advocate, ordering medications, tests, or procedures, referring and communicating with other health managed care provider, documenting clinical information in the electronic or other health record, independently interpreting results and communicating results to the patient/family/care advocate and care coordinating patient plan. Patient alert and oriented x 4 and aware of discussion noted above and in agreeance to plan in management of hypothyroidism, well controlled type 2 dM, obesity/weight management and concern for hypercortisolism. 12/20/2024 Other Assessment and Plan: 1. Suspected Hypercortisolism- Order 24-hour urine cortisol test- Order salivary cortisol test- Order CT scan of adrenal glands- Repeat dexamethasone suppression test- Discuss results and potential treatment options at follow-up appointment 2. Type 2 Diabetes Mellitus- Patient to initiate Ozempic as previously prescribed, starting the weekend after next- Order A1c test for next visit- Recommend B12 supplementation to counteract potential deficiency from previous metformin use- Reassess glycemic control and medication efficacy at follow-up appointment 3. Sleep Disturbances- Provide referral to sleep medicine for further evaluation and management- Follow up on sleep study results and recommendations at next visit 4. Routine Health Maintenance- Order lipid panel- Order thyroid function tests- Review results at follow-up appointment Spent 25 minutes preparing to see the patient (ex review of tests/chart), obtaining and / or reviewing separately obtained history, performing a medically appropriate examination and/or evaluation, counseling and educating the patient/family/care advocate, ordering medications, tests, or procedures, referring and communicating with other health managed care provider, documenting clinical information in the electronic or other health record, independently interpreting results and communicating results to the patient/family/care advocate and care coordinating patient plan. Patient alert and oriented x 4 and aware of discussion noted above and in agreeance to plan in management of well controlled type 2 dM/obesity, PCOS, hypercortisolism concern, need for sleep study and need for CT adrenal to screen for adrenal pathology. Plan Of Treatment Pending Test Test Name Order Date *CT ABDOMEN W/O CONTRAST [id number] Insurance Providers Payer Name Payer Address Payer Phone Subscriber Number Group Number Insured Name Patient Relationship to Insured Coverage Start Date Coverage End Date [facility] [address] [place] [id number] RANDOLPH BUITRAGO Self - patient is the insured Medical (General) History Medical History History ICD Code HYPOTHYROIDISM DIABETIES PCOS Surgical History Surgery Date(Month/Year) GALLBLADDER 2004 LEG LENGTHENING 1999 Hospitalization History Reason Date(Month/Year) C SECTIONS
== END 2025-04-16 08:16 | disposition home or self-care (01) ==
LOC: ANHFOHIMG 08:17
PROVIDERS: PCP Family Medicine; Visit Provider Family Medicine
DX: Z12.31 Encounter for screening mammogram for malignant neoplasm of breast (principal)
CPT/HCPCS: 77063; 77067

== ENCOUNTER 2025-08-07 10:53 | Outpatient (CLI) | payer OTHER, SELFPAY ==
--- NOTE | ~2025-08-07 | XR_ITS ---
[id number] Indication: M54.2 - Cervicalgia Comparison: None Findings: Grade 1 retrolisthesis of C5 on C6, no fracture is identified Moderate loss of disc height at C5-6 and C6-7. Soft tissues unremarkable Impression: No acute abnormality. Reviewed, dictated and finalized at location P. FILER Impression: No acute abnormality.
== END 2025-08-07 10:54 | disposition home or self-care (01) ==
LOC: MICIMG 10:54
PROVIDERS: PCP Family Medicine; Visit Provider Nurse Practitioner Family
DX: M54.2 Cervicalgia (principal)
CPT/HCPCS: 72040